=== PATIENT | female | born 1990 | race Two or more races ===

== ENCOUNTER 2019-08-04 03:55 | Emergency (ER) | payer MEDICAID ==
[~2019-08-04] VITALS: Ht 157.5 cm; Wt 68.0 kg
[2019-08-04] MEDS ORDERED: KETOROLAC TROMETH 60MG/2ML VIAL IM ONE (05:45)
[2019-08-04 07:18] VITALS: BP 117/70
== END 2019-08-04 07:27 | disposition home or self-care (01) ==
LOC: ER 03:55
DX: S00.83XA Contusion of other part of head, initial encounter (principal); S00.33XA Contusion of nose, initial encounter; V43.52XA Car driver injured in collision with other type car in traffic accident, initial encounter; Y93.89 Activity, other specified; Y92.89 Other specified places as the place of occurrence of the external cause; Y99.8 Other external cause status
CPT/HCPCS: 70450; 70486; 72125; 96372; 99285; J1885

== ENCOUNTER 2019-11-20 16:11 | Emergency (ER) | payer MEDICAID, OTHER ==
[~2019-11-20] VITALS: Ht 157.5 cm; Wt 86.2 kg
[2019-11-20 17:36] VITALS: BP 120/94
== END 2019-11-20 17:47 | disposition home or self-care (01) ==
LOC: EDBD 16:11 → MERGE 16:11 → ER 16:11
DX: J06.9 Acute upper respiratory infection, unspecified (principal); H10.9 Unspecified conjunctivitis; J45.909 Unspecified asthma, uncomplicated